=== PATIENT | female | born 1995 | race Two or more races ===

== ENCOUNTER 2023-11-15 10:40 | Emergency (ER) | payer OTHER, SELFPAY ==
--- NOTE | ~2023-11-15 | XR_ITS ---
EXAMINATION: XR KNEE, LEFT CLINICAL INFORMATION: Fell on left knee last night, pain and limited range of motion COMPARISON: None available. TECHNIQUE: AP and lateral views of the left knee. FINDINGS: No fracture. Small joint effusion. Alignment is anatomic. Joint spaces are maintained. No abnormal soft tissue calcification. Soft tissue swelling is seen particularly along the medial aspect of the knee. XR/XR knee LT 2V IMPRESSION: 1. No bony abnormality. 2. Small joint effusion.
[2023-11-15 11:07] VITALS: BP 110/68; PULSE 80; RESP 16; TEMP 37; O2SAT 99; BMI 32.3
== END 2023-11-15 16:10 | disposition left against medical advice (07) ==
PROVIDERS: Emergency Provider Emergency Medicine
DX: Z91.81 History of falling (principal)
CPT/HCPCS: 73560; 99281; 99283

== ENCOUNTER 2024-09-21 12:26 | Emergency (ER) | payer MEDICAID, SELFPAY ==
--- NOTE | 2024-09-21 | ECG_ITS ---
Test Reason : CHEST PAIN Blood Pressure : */* mmHG Vent. Rate : 75 BPM Atrial Rate : * BPM P-R Int : * ms QRS Dur : 74 ms QT Int : 398 ms P-R-T Axes : * 33 18 degrees QTcB Int : 444 ms Normal sinus rhythm Normal ECG No previous ECGs available Referred By: Generic ED Physician Electronically Signed By: Gopi Joe
--- NOTE | ~2024-09-21 | XR_ITS ---
EXAMINATION: XR CHEST 1 VIEW HISTORY: Chest pain. COMPARISON: There are no prior studies for comparison. FINDINGS: A single PA view of the chest is submitted. The lungs are expanded and clear. There is no pleural effusion, pneumothorax, or pulmonary vascular congestion. The heart is normal in size. The bones are intact. XR/XR chest 1V IMPRESSION: Clear lungs. Electronically signed by: Chapo Holguin MD 09/21/2024 01:59 PM [facility]
--- NOTE | ~2024-09-21 | US_ITS ---
EXAMINATION: US OBSTETRICAL ULTRASOUND CLINICAL INFORMATION: woman. Abdominal pain. COMPARISON: None available. LMP: August 02, 2024. Gestational age by maternal dates is 7 weeks and 1 day. Estimated date of delivery by maternal dates is 05/09/2025. TECHNIQUE: Real-time transabdominal obstetric pelvic ultrasound performed using grayscale and color Doppler technique. FINDINGS: There is a single intrauterine gestational sac with a pole and a yolk sac.. There is a 2.6 cm irregular shaped subchorionic hypoechoic abnormality. HR: 158 beats per minute. CRL (crown rump length): 1.32 cm (7 weeks and 5 days +/- 4 days). LULU (estimated date of delivery): 05/05/2025 +/- 4 days. MATERNAL ADNEXA: The right maternal ovary measures 3 x 2 x 1 cm. Flow on color Doppler interrogation. The left maternal ovary measures 2 x 2 x 2 cm. Flow on color Doppler interrogation. There is no significant maternal adnexal mass. No maternal pelvic ascites. US/US OB <= 14 weeks fetus IMPRESSION: 1. Single intrauterine gestation with ultrasound gestational age of 7 weeks and 5 days +/- 4 days. 2.6 cm subchorionic hemorrhage. Recommend follow-up ultrasound and serial quantitative indication ICD. 2. Estimated date of delivery is 05/05/2025 +/- 4 days. 3. No ovarian torsion. Discussed with the emergency physician Dr. Corey Zarate at 3:53 PM on 09/21/2024. Electronically signed by: Wilber Rivero MD 09/21/2024 03:54 PM [facility] [place]
--- NOTE | ~2024-09-21 | US_ITS ---
EXAMINATION: US ABDOMEN LIMITED CLINICAL INFORMATION: Epigastric pain.. COMPARISON: None available. TECHNIQUE: Real-time imaging of the right upper quadrant abdominal viscera, Limited. FINDINGS: PANCREAS: No peripancreatic fluid collection. LIVER: Liver measures 15 cm. No nodular surface. Coarse echotexture. No solid or cystic lesion. No intrahepatic biliary ductal dilatation. GALLBLADDER: Probable biliary sludge. No pericholecystic fluid collection or gallbladder wall thickening. COMMON BILE DUCT: 4 mm.. RIGHT KIDNEY: 10 cm. Normal echotexture. Normal renal cortical thickness. No solid or cystic lesion. No hydronephrosis. 6 mm hyperechoic foci in the upper pole/midportion. Normal flow on color Doppler interrogation of the renal hilum. FREE FLUID: None. US/US abdomen limited IMPRESSION: Biliary sludge. Probable 6 mm nonobstructing calculus, right kidney. Electronically signed by: Wilber Rivero MD 09/21/2024 03:46 PM EST
[2024-09-21 13:22] VITALS: BP 133/90; RESP 18; TEMP 36.4; O2SAT 99; BMI 27.1
--- NOTE | 2024-09-21 13:27 | ED.GENADULT ---
HPI - General Adult General Chief complaint: OB Stated complaint: cp, vomiting blood, Time Seen by Provider: 09/21/24 14:40 History of Present Illness HPI narrative: patient seen and note written by Dr. Shin Related Data Previous Rx's ?Medication ?Instructions ?Recorded omeprazole 20 mg capsule,delayed 20 mg PO DAILY #30 caps 09/21/24 release Allergies Allergy/AdvReac Type Severity Reaction Status Date / Time No Known Allergies Allergy Verified 09/21/24 13:26 [facility] Social History Social History Smoked in Last 30 Days: No Use of substances other than those prescribed or required for medical reasons: No Advance Directives: No Advance Directives Information Provided: Yes Do you have a plan to hurt others: No Plan Patient : Yes (8 weeks) Physical Exam ED Vital Signs: Vital Signs - 24 hr 09/21/24 13:22 09/21/24 14:54 09/21/24 16:18 Temperature 97.6 F 97.6 F 98.3 F Pulse Rate 93 82 Respiratory Rate 18 26 H 16 Blood Pressure 133/90 H 134/98 H 129/76 Pulse Oximetry 99 99 99 Oxygen Delivery Method Room Air Room Air 09/21/24 16:51 Temperature 98.3 F Pulse Rate 82 Respiratory Rate 16 Blood Pressure 129/76 Pulse Oximetry 99 Oxygen Delivery Method Room Air BMI result Body Mass Index 27.1 Course Course Course Narrative: RME: 29 yold female 7 weeks presents to the ED for vomitting specs of blood for 3 weeks with abdominal pain. Patient has been to [facility] too many times for this symptoms and states she was discharged given antiacid medication. Patient states no relief. Patient has in back emesis that is green with specks of bright red blood with abdominal pain. Patient states no blood in stool Medications Administered Discontinued Medications Generic Name Dose Route Start Last Admin Trade Name Freq PRN Reason Stop Dose Admin Al Hydroxide/Mg Hydroxide 30 ml 09/21/24 15:29 09/21/24 15:41 Magnesium Hydrox/Alum Hydrox 30 Ml Oral.Susp PO 09/21/24 15:30 30 ml ONCE ONE Administration Diphenhydramine HCl 25 mg 09/21/24 14:41 09/21/24 14:49 Diphenhydramine Hcl 50 Mg/Ml Vial IVPUSH 09/21/24 14:42 25 mg ONCE ONE Administration Sodium Chloride 1,000 mls @ 999 mls/hr 09/21/24 14:45 09/21/24 15:40 Ns IVCONT 09/21/24 15:45 Infused .Q1H1M JUAN MANUEL Infusion Lactated Ringer's 1,000 mls @ 999 mls/hr 09/21/24 15:30 09/21/24 16:36 Lr IV 09/21/24 16:30 Infused .Q1H1M JUAN MANUEL Infusion Metoclopramide HCl 10 mg 09/21/24 14:41 09/21/24 14:50 Metoclopramide Hcl 10 Mg/2 Ml Vial IVPUSH 09/21/24 14:42 10 mg ONCE ONE Administration Pantoprazole Sodium 40 mg 09/21/24 14:41 09/21/24 14:49 Pantoprazole Sodium 40 Mg/10 Ml Vial IVPUSH 09/21/24 14:42 40 mg ONCE ONE Administration Medical Decision Making Lab Data 09/21/24 14:43 09/21/24 14:44 Labs: Lab Results 09/21/24 09/21/24 09/21/24 Range/Units 14:43 14:44 15:34 WBC 12.4 H (4.8-10.8) X10*3/uL RBC 4.86 (4.20-5.50) X10*6/uL Hgb 14.2 (12.0-16.0) g/dl Hct 39.9 (37.0-47.0) % MCV 82.1 (80.0-98.0) fL MCH 29.2 (27.0-33.0) pg MCHC 35.6 H (31.0-35.0) g/dl RDW 12.4 (11.0-16.0) % Plt Count 416 H (160-400) X10*3/uL MPV 10.2 (9.4-12.3) fL Immature Gran % (Auto) 0.5 H (0.0-0.4) % Neut % (Auto) 75.7 H (45-73) % Lymph % (Auto) 17.1 L (20-40) % [place] % (Auto) 6.5 (2-11) % Eos % (Auto) 0.1 (0-4) % Baso % (Auto) 0.1 (0-2) % Lymph # (Auto) 2.1 (1.2-4.9) X10*3/uL [place] # (Auto) 0.8 (0.1-1.2) X10*3/uL Eos # (Auto) 0.0 (0.0-0.4) X10*3/uL Baso # (Auto) 0.0 (0.0-0.2) X10*3/uL Abs Immat Gran (auto) 0.06 H (0.00-0.03) X10*3/uL Absolute Neuts (auto) 9.4 H (2.0-8.3) x10*3/uL Absolute Nucleated RBC 0.000 (0.0-0.012) X10*3/uL Nucleated RBC % (auto) 0.0 (0.0-0.2) /100WBC Sodium 139 (135-145) mmol/L Potassium 3.1 L (3.3-5.1) mmol/L Chloride 104 (96-108) mmol/L Carbon Dioxide 24 (22-29) mmol/L Anion Gap 14 (12-20) BUN 7 L (9-16) mg/dL Creatinine 0.77 (0.5-1.4) mg/dL Estim Creat Clear Calc 112.4 Estimated GFR > 60 Random Glucose 109 (60-115) mg/dL Calcium 10.1 (8.4-10.2) mg/dL Total Bilirubin 0.7 (0.0-1.0) mg/dL AST 22 (5-31) U/L ALT 61 H (0-31) U/L Alkaline Phosphatase 72 (39-117) U/L Troponin I High Sens < 2.7 (<3.5-17.0) ng/L B-Natriuretic Peptide < 10 (<100) pg/mL Total Protein 8.9 H (6.5-8.0) g/dL Albumin 4.6 (3.5-5.0) g/dL Lipase 11 (8-78) U/L Beta HCG, Quant 925732 mIU/mL Urine Color Dark Yellow Urine Appearance Cloudy Urine pH 6.0 (5.0-9.0) Ur Specific [place] >= 1.030 H (1.005-1.025) Urine Protein 100 (2+) H (Neg-Trace) mg/dL Urine Glucose (UA) Negative (Negative) mg/dL Urine Ketones >=160 (Negative) mg/dL Urine Blood Moderate (2+) H (Negative) Urine Nitrite Negative (Negative) Ur Leukocyte Esterase Small (1+) H (Negative) Urine RBC 6-10 H (0-2) /HPF Urine WBC 0-5 (0-5) /HPF Ur Squamous Epith Cells 11-20 (0-2) /HPF Calcium Oxalate Crystal Present Urine Bacteria 1+ (None Seen) Hyaline Casts 3-5 (0-2) /LPF Urine Test POSITIVE H (NEGATIVE) Influenza Type A (PCR) NEGATIVE (Negative) Influenza Type B (PCR) NEGATIVE (Negative) RSV RNA Qual (PCR) NEGATIVE (Negative) SARS-CoV-2 RNA (RT-PCR) NEGATIVE (Negative) Blood Type O Positive Discharge Plan Discharge Clinical Impression: Hyperemesis gravidarum Patient Disposition: Home, Self-Care Instructions: Hyperemesis Gravidarum (ED) Additional Instructions: Follow-up with your primary care physician return if you worse continue the Zofran and Reglan we are going to give you a medication for your stomach is called [facility]. Also follow-up with your OBGYN call tomorrow and make an appointment you will need a follow-up OB ultrasound Prescriptions: New omeprazole 20 mg capsule,delayed release(DR/EC) 20 mg PO DAILY Qty: 30 0RF Referrals: Jevon Andrade MD [Physician] - 09/25/24 Interventions: ED Discharge Assessment Last Done: 09/21/24 16:51 Discharge Date/Time: 09/21/24 16:52 Print Language: Yoruba
--- NOTE | 2024-09-21 14:43 | ED.NAVMDI ---
HPI - Nausea/Vomiting/Diarrhea General Chief complaint: OB Stated complaint: cp, vomiting blood, Time Seen by Provider: 09/21/24 14:40 Source: patient Mode of arrival: ambulatory Limitations: no limitations History of Present Illness HPI Narrative: This is a 29 years old the G 3P2 about 2 Month gestation presented to the emergency department with a chief complaint of nausea vomiting, with streaks of blood in the vomiting. She has been seen [facility] several times and discharged home all the time MD elicited complaint: nausea and vomiting Onset (ago): day(s) (7) Description of vomiting: watery and blood-streaked Associated nausea: Yes Associated abdominal pain: No Location of pain: none Related Data Previous Rx's ?Medication ?Instructions ?Recorded omeprazole 20 mg capsule,delayed 20 mg PO DAILY #30 caps 09/21/24 release Allergies Allergy/AdvReac Type Severity Reaction Status Date / Time No Known Allergies Allergy Verified 09/21/24 13:26 Review of Systems Constitutional: Constitutional: Reports no additional constitutional complaints and Denies fever(s) Cardiovascular: Cardiovascular: Reports no additional cardiovascular complaints Gastrointestinal: Gastrointestinal: Reports nausea PMFSH Past Medical History PMFSH Narrative: Denies any major medical problems : 3 Para: 2 Social History Social History Smoked in Last 30 Days: No Use of substances other than those prescribed or required for medical reasons: No Advance Directives: No Advance Directives Information Provided: Yes Do you have a plan to hurt others: No Plan Patient : Yes (8 weeks) Physical Exam Vital Signs: Vital Signs: Last Vital Signs Temp 98.3 F 09/21/24 16:18 Pulse 82 09/21/24 16:18 Resp 16 09/21/24 16:18 BP 129/76 09/21/24 16:18 Pulse Ox 99 09/21/24 16:18 O2 Del Method Room Air 09/21/24 16:18 BMI result Body Mass Index 27.1 Patient no acute distress blood pressure 133/90 she is not tachycardic Const: General: cooperative, well developed and alert Nutritional Appearance: average body habitus Orientation/consciousness: patient oriented x3 Limitations: no limitations HEENT: Head: Yes normal to inspection Ears: hearing grossly normal bilaterally General nose exam: Normal external nose present Face and sinus: Yes normal facial exam Mouth: Normal oral and palatal mucosa present Throat: Yes posterior oropharynx normal Neck: Neck: Yes normal visual inspection Resp: Effort & Inspection: normal respiratory effort Auscultation: clear to auscultation bilaterally Cardio: Jugular venous distension: no JVD Rate: regular rate Rhythm: regular rhythm GI: Inspection: Yes normal to inspection Palpation (GI): Soft to palpation, not firm, nontender and no guarding Skin: General skin exam: no rashes or lesions noted and elasticity normal Lesions: no lesions Rashes: no rashes Neuro: General: patient oriented x3 Extrem: General: Yes normal to inspection Course Reevaluation(s) Reevaluation #1: On re-examination she is doing better tolerating p.o. well, labs okay H&H normal, she was not seen vomiting in ED in the emergency room , she already has a prescription for Zofran and Reglan Time: 15:54 Reevaluation #2: As 16:18 blood pressure 129/76 pulse 82, respirations 16 temperature 98.3 degrees sat 99% okay to discharge Time: 16:47 Medications Administered Discontinued Medications Generic Name Dose Route Start Last Admin Trade Name Freq PRN Reason Stop Dose Admin Al Hydroxide/Mg Hydroxide 30 ml 09/21/24 15:29 09/21/24 15:41 Magnesium Hydrox/Alum Hydrox 30 Ml Oral.Susp PO 09/21/24 15:30 30 ml ONCE ONE Administration Diphenhydramine HCl 25 mg 09/21/24 14:41 09/21/24 14:49 Diphenhydramine Hcl 50 Mg/Ml Vial IVPUSH 09/21/24 14:42 25 mg ONCE ONE Administration Sodium Chloride 1,000 mls @ 999 mls/hr 09/21/24 14:45 09/21/24 15:40 Ns IVCONT 09/21/24 15:45 Infused .Q1H1M JUAN MANUEL Infusion Lactated Ringer's 1,000 mls @ 999 mls/hr 09/21/24 15:30 09/21/24 16:36 Lr IV 09/21/24 16:30 Infused .Q1H1M JUAN MANUEL Infusion Metoclopramide HCl 10 mg 09/21/24 14:41 09/21/24 14:50 Metoclopramide Hcl 10 Mg/2 Ml Vial IVPUSH 09/21/24 14:42 10 mg ONCE ONE Administration Pantoprazole Sodium 40 mg 09/21/24 14:41 09/21/24 14:49 Pantoprazole Sodium 40 Mg/10 Ml Vial IVPUSH 09/21/24 14:42 40 mg ONCE ONE Administration Medical Decision Making Medical Decision Making [facility] Narrative: Patient presented to the emergency department complaining of nausea vomiting she is 1st trimester we will insert IV administer IV fluid antiemetic Differential Diagnosis Differential Diagnoses: The differential diagnosis associated with the presentation includes Hyperemesis gravidarum, peptic ulcer disease,Yuni Patten Admission/Observation Consideration of admission/observation: Escalation of care including admission/observation considered Lab Data [facility] Lab Attestation statement: I reviewed the patient's lab results. 09/21/24 14:43 09/21/24 14:44 Labs: Lab Results 09/21/24 09/21/24 09/21/24 Range/Units 14:43 14:44 15:34 WBC 12.4 H (4.8-10.8) X10*3/uL RBC 4.86 (4.20-5.50) X10*6/uL Hgb 14.2 (12.0-16.0) g/dl Hct 39.9 (37.0-47.0) % MCV 82.1 (80.0-98.0) fL MCH 29.2 (27.0-33.0) pg MCHC 35.6 H (31.0-35.0) g/dl RDW 12.4 (11.0-16.0) % Plt Count 416 H (160-400) X10*3/uL MPV 10.2 (9.4-12.3) fL Immature Gran % (Auto) 0.5 H (0.0-0.4) % Neut % (Auto) 75.7 H (45-73) % Lymph % (Auto) 17.1 L (20-40) % [place] % (Auto) 6.5 (2-11) % Eos % (Auto) 0.1 (0-4) % Baso % (Auto) 0.1 (0-2) % Lymph # (Auto) 2.1 (1.2-4.9) X10*3/uL [place] # (Auto) 0.8 (0.1-1.2) X10*3/uL Eos # (Auto) 0.0 (0.0-0.4) X10*3/uL Baso # (Auto) 0.0 (0.0-0.2) X10*3/uL Abs Immat Gran (auto) 0.06 H (0.00-0.03) X10*3/uL Absolute Neuts (auto) 9.4 H (2.0-8.3) x10*3/uL Absolute Nucleated RBC 0.000 (0.0-0.012) X10*3/uL Nucleated RBC % (auto) 0.0 (0.0-0.2) /100WBC Sodium 139 (135-145) mmol/L Potassium 3.1 L (3.3-5.1) mmol/L Chloride 104 (96-108) mmol/L Carbon Dioxide 24 (22-29) mmol/L Anion Gap 14 (12-20) BUN 7 L (9-16) mg/dL Creatinine 0.77 (0.5-1.4) mg/dL Estim Creat Clear Calc 112.4 Estimated GFR > 60 Random Glucose 109 (60-115) mg/dL Calcium 10.1 (8.4-10.2) mg/dL Total Bilirubin 0.7 (0.0-1.0) mg/dL AST 22 (5-31) U/L ALT 61 H (0-31) U/L Alkaline Phosphatase 72 (39-117) U/L Troponin I High Sens < 2.7 (<3.5-17.0) ng/L B-Natriuretic Peptide < 10 (<100) pg/mL Total Protein 8.9 H (6.5-8.0) g/dL Albumin 4.6 (3.5-5.0) g/dL Lipase 11 (8-78) U/L Beta HCG, Quant 655670 mIU/mL Urine Color Dark Yellow Urine Appearance Cloudy Urine pH 6.0 (5.0-9.0) Ur Specific [place] >= 1.030 H (1.005-1.025) Urine Protein 100 (2+) H (Neg-Trace) mg/dL Urine Glucose (UA) Negative (Negative) mg/dL Urine Ketones >=160 (Negative) mg/dL Urine Blood Moderate (2+) H (Negative) Urine Nitrite Negative (Negative) Ur Leukocyte Esterase Small (1+) H (Negative) Urine RBC 6-10 H (0-2) /HPF Urine WBC 0-5 (0-5) /HPF Ur Squamous Epith Cells 11-20 (0-2) /HPF Calcium Oxalate Crystal Present Urine Bacteria 1+ (None Seen) Hyaline Casts 3-5 (0-2) /LPF Urine Test POSITIVE H (NEGATIVE) Influenza Type A (PCR) NEGATIVE (Negative) Influenza Type B (PCR) NEGATIVE (Negative) RSV RNA Qual (PCR) NEGATIVE (Negative) SARS-CoV-2 RNA (RT-PCR) NEGATIVE (Negative) Blood Type O Positive Independent Interpretation I performed an independent interpretation of an: Ultrasound Interpretation: There is no significant maternal adnexal mass. No maternal pelvic ascites. US/US OB <= 14 weeks fetus IMPRESSION: 1. Single intrauterine gestation with ultrasound gestational age of 7 weeks and 5 days +/- 4 days. 2.6 cm subchorionic hemorrhage. Recommend follow-up ultrasound and serial quantitative indication ICD. 2. Estimated date of delivery is 05/05/2025 +/- 4 days. 3. No ovarian torsion. Discussed with the emergency physician Dr. Corey Zarate at 3:53 PM on 09/21/2024. Electronically signed by: Wilber Rivero MD 09/21/2024 03:54 PM [facility] [place] Dictated By: Wilber Grijalva MD Signed By: <Electronically signed by Wilber Cortes MD in OV> 09/21/24 1554 Radiology Impression Discussion of test interpretation with radiology: I have reviewed the radiologist's reading. Discharge Plan Discharge Clinical Impression: Hyperemesis gravidarum Patient Disposition: Home, Self-Care Instructions: Hyperemesis Gravidarum (ED) Additional Instructions: Follow-up with your primary care physician return if you worse continue the Zofran and Reglan we are going to give you a medication for your stomach is called [facility]. Also follow-up with your OBGYN call tomorrow and make an appointment you will need a follow-up OB ultrasound Prescriptions: New omeprazole 20 mg capsule,delayed release(DR/EC) 20 mg PO DAILY Qty: 30 0RF Referrals: Jevon Andrade MD [Physician] - 09/25/24 Print Language: Mauritian
[2024-09-21] MEDS: diphenhydrAMINE HCL 50 MG/ML VIAL 25 MG IVPUSH (14:49)
[2024-09-21] MEDS: Pantoprazole Sodium 40 MG/10 ML VIAL IVPUSH (14:49)
[2024-09-21] MEDS: Metoclopramide HCl 10 MG/2 ML VIAL IVPUSH (14:50)
[2024-09-21] MEDS: 0.9 % Sodium Chloride 1,000 ML 999 ML IVCONT (14:51)
[2024-09-21 14:52] LABS: MANUAL DIFF FLAG NO
[2024-09-21 14:54] VITALS: BP 134/98; PULSE 93; RESP 26; TEMP 36.4; O2SAT 99
[2024-09-21 14:54] LABS: Basophils Percent Auto 0.1 % (0-2); Eosinophils Percent Auto 0.1 % (0-4); Hematocrit 39.9 % (37.0-47.0); Hemoglobin 14.2 g/dl (12.0-16.0); Imm Gran Abs Auto 0.06 X10*3/uL (0.00-0.03); Imm Gran Pct Auto 0.5 % (0.0-0.4); Lymphocytes Absolute Auto 2.1 X10*3/uL (1.2-4.9); Lymphocytes Percent Auto 17.1 % (20-40); Mean Corpuscular HGB Conc 35.6 g/dl (31.0-35.0); Mean Corpuscular Hemoglobin 29.2 pg (27.0-33.0); Mean Corpuscular Volume 82.1 fL (80.0-98.0); Mean Platelet Volume 10.2 fL (9.4-12.3); Monocytes Absolute Auto 0.8 X10*3/uL (0.1-1.2); Monocytes Percent Auto 6.5 % (2-11); Neutrophils Absolute Auto 9.4 x10*3/uL (2.0-8.3); Neutrophils Percent Auto 75.7 % (45-73); Platelet Count 416 X10*3/uL (160-400); Red Blood Count 4.86 X10*6/uL (4.20-5.50); Red Cell Distribution Width 12.4 % (11.0-16.0); White Blood Count 12.4 X10*3/uL (4.8-10.8)
[2024-09-21 15:22] LABS: B Type Natriuretic Peptide < 10 pg/mL (<100)
[2024-09-21 15:24] LABS: Troponin-I High Sensitivity < 2.7 ng/L (<3.5-17.0)
[2024-09-21 15:26] LABS: Alanine Aminotransferase 61 U/L (0-31); Albumin Level 4.6 g/dL (3.5-5.0); Alkaline Phosphatase 72 U/L (39-117); Anion Gap 14 (12-20); Aspartate Amino Transferase 22 U/L (5-31); Bilirubin Total 0.7 mg/dL (0.0-1.0); Blood Urea Nitrogen 7 mg/dL (9-16); Calcium 10.1 mg/dL (8.4-10.2); Carbon Dioxide 24 mmol/L (22-29); Chloride 104 mmol/L (96-108); Creatinine Clr Calc Pharmacy 112.4; Estimated Glomerular Filt Rate > 60; Glucose Random 109 mg/dL (60-115); Lipase 11 U/L (8-78); Potassium 3.1 mmol/L (3.3-5.1); Sodium 139 mmol/L (135-145); Total Protein 8.9 g/dL (6.5-8.0)
[2024-09-21 15:35] LABS: Influenza A PCR NEGATIVE (Negative); Influenza B PCR NEGATIVE (Negative); Resp Syncy Virus RNA Qual PCR NEGATIVE (Negative); SARS COV2 PCR INHOUSE NEGATIVE (Negative)
[2024-09-21] MEDS: Magnesium Hydrox/Alum Hydrox 30 ML ORAL.SUSP PO (15:41)
[2024-09-21] MEDS: Lactated Ringers 1,000 ML 999 ML IV (15:41)
[2024-09-21 15:52] LABS: UPreg QC Valid YES; Urine Pregnancy POSITIVE (NEGATIVE)
[2024-09-21 16:00] LABS: Appearance Urine Cloudy; Color Urine Dark Yellow; Glucose Urine UA Negative (Negative); Leukocyte Esterase Urine Small (1+) (Negative); Nitrite Urine Negative (Negative); Specific Gravity - Urine >= 1.030 (1.005-1.025); UMIC TRIGGER UACC YES; Urine Blood Moderate (2+) (Negative); Urine Ketones >=160 mg/dL (Negative); Urine Protein 100 (2+) mg/dL (Neg-Trace)
[2024-09-21 16:18] VITALS: BP 129/76; PULSE 82; RESP 16; TEMP 36.8; O2SAT 99
--- NOTE | 2024-09-21 16:19 | PC.NURSE ---
Pt reports + decrease in sx's since treatment; IVF's finishing infusing and pt slated for DC home; vss
[2024-09-21 16:22] LABS: Bacteria Urine 1+ (None Seen); Calcium Oxalate Crystals Urine Present; UACC Culture Trigger YES; WBC Urine 0-5 /HPF (0-5)
[2024-09-21 16:51] VITALS: BP 129/76; PULSE 82; RESP 16; TEMP 36.8; O2SAT 99
--- OUTSIDE RECORDS SUMMARY | 2024-09-21 18:02 | XMS_ITS | Clinical Summary ---
Author Organization [facility] ity Address [address] [place] [address] Care Team Providers Care Floor Sander Name Role Phone Jean Ayon MD Primary Care Provider [phone] Social History Tobacco Use Types Packs/Day Years Used Date Smoking Tobacco: Never Assessed Comments Unknown Sex and Gender Information Value Date Recorded Sex Assigned at Not on file Legal Sex Female 4:51 PM EST Gender Identity Not on file Sexual Orientation Not on file Plan of Treatment Health Maintenance Due Date Last Done Comments DTaP,Tdap,and Td Vaccines (1 - Tdap) 2014 Hepatitis B Vaccines (1 of 3 - 19+ 3-dose series) 2014 Cervical Cancer Screening: P ap Smear 2016 Depression Screening 08/24/2023 HIV Screening 08/24/2023 Hepatitis C Screening 08/24/2023 Social Influencers of Health Screening 08/24/2023 COVID-19 Vaccine ( - 2023-2 5 season) 2024 Influenza Vaccine (#1) 2024 HIB Vaccines Aged Out No longer eligi ble based on patient's age to complete this topic HPV Vaccines Aged Out No longer eligi ble based on patient's age to complete this topic Hepatitis A Vaccines Aged Out No long er eligible based on patient's age to complete this topic IPV Vaccines Aged Out No longer eligi ble based on patient's age to complete this topic MMR Vaccines Aged Out No longer eligi ble based on patient's age to complete this topic Meningococcal ACWY Vaccine Aged Out N o longer eligible based on patient's age to complete this topic Meningococcal B Vacine Aged Out No lo nger eligible based on patient's age to complete this topic Pneumococcal Vaccine: Pediat rics (0 to 5 Years) and At-Risk Patients (6 to 64 Years) Aged Out No longer eligible b ased on patient's age to complete this topic RSV Immunization Patients Un jimmy 20 months Aged Out No longer eligible b ased on patient's age to complete this topic Varicella Vaccines Aged Out No longer eligible based on patient's age to complete this topic Care Teams Floor Sander Relationship Specialty Start Date End Date Jean Ayon MD PCP - General Internal Medicine 05/27/18
== END 2024-09-21 16:52 | disposition home or self-care (01) ==
PROVIDERS: Physician Assistant; Emergency Provider Emergency Medicine
DX: O21.0 Mild hyperemesis gravidarum (principal); Z3A.01 Less than 8 weeks gestation of pregnancy; Z03.818 Encounter for observation for suspected exposure to other biological agents ruled out
CPT/HCPCS: 0241U; 36415; 71045; 76705; 76801; 80053; 81001; 81003; 81025; 83690; 83880; 84484; 84702; 85025; 86900; 86901; 87086; 93005; 96361; 96374; 96375; 99284; J1200; J2470; J2765; J7120

== ENCOUNTER → 2024-09-21 12:42 | Outpatient (BNV) | payer MEDICAID, SELFPAY | PROVIDERS: Emergency Provider Emergency Medicine; Visit Provider Internal Medicine Cardiovascular Disease | DX: R07.9 Chest pain, unspecified (principal) | CPT/HCPCS: 93010 ==

== ENCOUNTER → 2024-09-21 13:39 | Outpatient (BNV) | payer MEDICAID, SELFPAY | PROVIDERS: Emergency Provider Emergency Medicine; Visit Provider Radiology Diagnostic Radiology | DX: R10.13 Epigastric pain (principal); R07.9 Chest pain, unspecified | CPT/HCPCS: 76705 ==